=== PATIENT | male | born 1990 | race American Indian/Alaskan Native ===

== ENCOUNTER 2018-05-12 08:59 | Emergency (ER) | payer OTHER ==
[2018-05-12 09:09] VITALS: BP 141/95
--- NOTE | 2018-05-12 11:01 | XRay Report ---
EXAM: XR FOOT 3+V LT HISTORY: pallet fell on foot TECHNIQUE: 3 views COMPARISON: None available. FINDINGS: There is no acute bony fracture, or joint subluxation or dislocation seen. There is a small, approxim ately 5 mm, plantar calcaneal bone spur. No focal bone erosion or sclerosis is seen. No evidence for inflammatory or degenerative arthritis is seen. No soft tissue emphysema, radiodense soft tissue abno rmality or foreign body is seen. IMPRESSION: 1. No acute bony fracture, or joint subluxation or dislocation seen. 2. Small, approximately 5 mm, plantar calcaneal bone spur. 3. No soft tissue emphysema, radiodense soft tissue abnormality or foreign body seen. This document is electronically signed by Justin Trevino MD., May 12 2018 10:59:26 AM ET
--- NOTE | 2018-05-12 11:11 | Emergency Department Report ---
ED Lower Extremity HPI - General Chief Complaint: Extremity Injury, Lower Stated Complaint: LFT FOOT INJURY/PAIN Time Seen by Provider: 05/12/18 09:25 Source: patient Mode of arrival: Ambulatory Limitations: No Limitations - History of Present Illness Initial Comments: 27-year-old -[place] male was at work and had a empty pallet fall onto his left foot while wearing ablution and about 30 minutes to an hour after was within have some throbbing pain with standing to his foot was worse with standing. Reported no swelling, no numbness or tingling. No broken skin and in. He is still able to ambulate with a with a limp. No prior injury to the foot. MD Complaint: foot injury -: Sudden Injury: Foot: Left Type of Injury: blunt Place: work Severity: mild, moderate Improves With: nothing Worsens With: nothing Context: direct blow Associated Symptoms: ambulatory - Related Data Previous Rx's Medication Instructions Recorded Last Taken Type Ketorolac [Toradol] 10 mg PO Q6H PRN #20 tablet 05/12/18 Unknown Rx Allergies Allergy/AdvReac Type Severity Reaction Status Date / Time No Known Allergies Allergy Unverified 05/12/18 09:08 ED Review of Systems ROS: Stated complaint: LFT FOOT INJURY/PAIN Other details as noted in HPI Constitutional: denies: chills, fever Eyes: denies: eye pain, eye discharge, vision change ENT: denies: ear pain, throat pain Respiratory: denies: cough, shortness of breath, wheezing Cardiovascular: denies: chest pain, palpitations Endocrine: no symptoms reported Gastrointestinal: denies: abdominal pain, nausea, diarrhea Genitourinary: denies: urgency, dysuria Musculoskeletal: joint swelling. denies: back pain, arthralgia Skin: denies: rash, lesions Neurological: denies: headache, weakness, paresthesias Psychiatric: denies: anxiety, depression Hematological/Lymphatic: denies: easy bleeding, easy bruising ED Past Medical Hx - Past Medical History Previous Medical History?: No - Surgical History Past Surgical History?: No - Social History Smoking Status: Never Smoker Substance Use Type: None - Medications Home Medications: Home Medications Medication Instructions Recorded Confirmed Last Taken Type Ketorolac [Toradol] 10 mg PO Q6H PRN #20 tablet 05/12/18 Unknown Rx ED Physical Exam - General Limitations: No Limitations General appearance: alert, in no apparent distress - Head Head exam: Present: atraumatic, normocephalic - Eye Eye exam: Present: normal appearance, PERRL, EOMI Pupils: Present: normal accommodation - ENT ENT exam: Present: normal exam, mucous membranes moist - Neck Neck exam: Present: normal inspection, full ROM - Respiratory Respiratory exam: Present: normal lung sounds bilaterally. Absent: respiratory distress, wheezes, rales, chest wall tenderness, accessory muscle use - Cardiovascular Cardiovascular Exam: Present: regular rate, normal rhythm. Absent: systolic murmur, diastolic murmur, rubs, gallop - GI/Abdominal GI/Abdominal exam: Present: soft, normal bowel sounds. Absent: tenderness, guarding, organomegaly - Rectal Rectal exam: Present: deferred - Extremities Exam Extremities exam: Present: normal inspection, tenderness, normal capillary refill, other (symptoms with palpation to the dorsum of the foot. Metatarsals. Pulses 2+ Pulses are brisk. No skin.). Absent: pedal edema - Back Exam Back exam: Present: normal inspection, full ROM. Absent: CVA tenderness (R), CVA tenderness (L), muscle spasm, paraspinal tenderness, vertebral tenderness - Neurological Exam Neurological exam: Present: alert, oriented X3, CN II-XII intact - Psychiatric Psychiatric exam: Present: normal affect, normal mood - Skin Skin exam: Present: warm, dry, intact, normal color. Absent: rash ED Course Vital Signs 05/12/18 09:05 Temperature 97.7 F Pulse Rate 76 Respiratory 16 Rate Blood Pressure 141/95 O2 Sat by Pulse 98 Oximetry ED Lower Extremity MDM - Radiology Data Radiology results: report reviewed (heel spur noted) Critical care attestation.: If time is entered above; I have spent that time in minutes in the direct care of this critically ill patient, excluding procedure time. ED Disposition Clinical Impression: Foot contusion, Heel spur Disposition: TO HOME OR SELFCARE Is pt being admited?: No Does the pt Need Aspirin: No Condition: Stable Instructions: Foot Contusion (ED), Ice Pack Application (ED) Prescriptions: Ketorolac [Toradol] 10 mg PO Q6H PRN #20 tablet PRN Reason: Pain Referrals: LEE ESCAMILLA MD [Primary Care Provider] - 3-5 Days
== END 2018-05-12 11:30 | disposition home or self-care (01) ==
LOC: ED 08:59
DX: S90.32XA Contusion of left foot, initial encounter (principal); M77.32 Calcaneal spur, left foot; W20.8XXA Other cause of strike by thrown, projected or falling object, initial encounter; Y93.89 Activity, other specified; Y92.89 Other specified places as the place of occurrence of the external cause; Y99.8 Other external cause status